=== PATIENT | female | born 1950 | race Caucasian/White ===

== ENCOUNTER → 2020-07-09 | Day surgery (SDC) | payer MEDICARE, OTHER ==
[~2020-07-09] MED LIST: ASPIRIN EC81 MG PO; COLACE100 MG PO; COZAAR50 MG PO; FISH OIL 1,2001 EAC3 PO; LOPRESSOR25 MG PO; NORCO 5-325 TA1 EACH PO; ONDANSETRON ODT8 MG PO; ZOCOR10 MG PO
[2020-07-09 07:42] LABS: HCT 42.5 % (37.0-47.0); HGB 14.2 g/dl (12.5-16.0); MCH 31.1 pg (25.0-31.0); MCHC 33.4 g/dL (32.0-36.0); MCV 93.2 fL (78.0-100.0); MPV 10.3 fL (6.0-9.5); RBC 4.56 M/uL (4.20-5.40); RDW 13.2 % (11.5-14.0); WBC 6.2 K/uL (4.0-10.5)
[2020-07-09 07:53] LABS: ALBUMIN 3.7 g/dL (3.4-5.0); BILIRUBIN - TOTAL 0.5 mg/dL (0.2-1.0); BUN/CREAT RATIO (CALC) 19.5 RATIO; CREATININE 0.77 mg/dL (0.51-0.95); GLOBULIN (CALCULATION) 3.6 g/dL; POTASSIUM 3.6 mmol/L (3.5-5.1); TOTAL PROTEIN 7.3 g/dL (6.4-8.2)
== END | disposition home or self-care (01) ==
LOC: FAS 06:57
PROVIDERS: Surgery
DX: K81.1 Chronic cholecystitis (principal); K82.0 Obstruction of gallbladder; K82.8 Other specified diseases of gallbladder; K66.0 Peritoneal adhesions (postprocedural) (postinfection); K64.9 Unspecified hemorrhoids; E78.00 Pure hypercholesterolemia, unspecified; E11.9 Type 2 diabetes mellitus without complications; I10 Essential (primary) hypertension; F41.9 Anxiety disorder, unspecified; M19.90 Unspecified osteoarthritis, unspecified site; Z20.822 Contact with and (suspected) exposure to COVID-19; Z79.899 Other long term (current) drug therapy; Z88.0 Allergy status to penicillin; Z88.2 Allergy status to sulfonamides; Z91.040 Latex allergy status; Z90.710 Acquired absence of both cervix and uterus; Z98.890 Other specified postprocedural states; Z82.49 Family history of ischemic heart disease and other diseases of the circulatory system
CPT/HCPCS: 36415; 80053; 82962; 93005; C1758; J2405; J2704; J2710; J3010; J7120; Q9967